=== PATIENT | female | born 1955 | race Caucasian/White ===

== ENCOUNTER 2021-04-11 21:17 | Emergency (ER) | payer MEDICARE, OTHER ==
[~2021-04-11] VITALS: Ht 165.1 cm; Wt 99.8 kg
[~2021-04-11 21:17] MED LIST: CITALOPRAM HBR20 MG PO; HYDROCHLOROTHIA25 MG PO; LEVOTHYROXINE125 MCG PO; LIDODERM700 MG TOP; LISINOPRIL20 MG PO; MEDROL4 M1 PO; METFORMIN HCL500 MG PO; NEURONTIN300 MG PO; PROPRANOLOL HC160 MG PO; VICTOZA 2-0.6 MG/0.1 SUB-Q; VICTOZA 3-0.6 MG/0.1 SUB-Q; ZOSTAVAX VIAL1 VIAL SUB-Q
[2021-04-11] MEDS ORDERED: NOVOLIN N100 UNIT/2 SQ (21:35)
[2021-04-11] MEDS ORDERED: ZOFRAN4 MG PO (23:24)
== END 2021-04-11 23:50 | disposition home or self-care (01) ==
LOC: ED 21:17
DX: U07.1 COVID-19 (principal); I10 Essential (primary) hypertension; E11.9 Type 2 diabetes mellitus without complications; E78.00 Pure hypercholesterolemia, unspecified; Z79.899 Other long term (current) drug therapy; Z79.4 Long term (current) use of insulin
CPT/HCPCS: 71045; 80053; 85025; 96374; 99283-25; C9803; J2405; U0003